=== PATIENT | male | born 1985 | race Caucasian/White ===

== ENCOUNTER 2021-03-22 18:33 | Emergency (ER) | payer MEDICARE, OTHER ==
[~2021-03-22] VITALS: Ht 170.2 cm; Wt 94.8 kg
[2021-03-22] MEDS ORDERED: RAMELTEON8 MG PO (18:59)
[2021-03-22] MEDS ORDERED: MYCOPHENOLATE500 MG PO (19:00)
[2021-03-22] MEDS ORDERED: CYCLOSPORINE MO25 MG PO (19:00)
[2021-03-22] MEDS ORDERED: ACYCLOVIR200 MG PO (19:01)
[2021-03-22] MEDS ORDERED: PRAVASTATIN SOD20 MG PO (19:01)
[2021-03-22] MEDS ORDERED: PREDNISONE5 MG PO (19:01)
--- NOTE | 2021-03-22 20:12 | EKG ---
[facility] [address] [facility] [place] [address] Signed Sinus tachycardia Possible Left atrial enlargement Low voltage QRS Incomplete right bundle branch block T wave abnormality, consider inferior ischemia Abnormal ECG No previous ECGs available Confirmed by SHAQUILLE TALAMANTES MD ([id number]) on 03/22/2021 8:12:49 PM Electronically Signed By: SHAQUILLE TALAMANTES MD 03/22/212011 PATIENT NAME: JORDAN PALMER Electrocardiogram DATE OF : 85 PHYSICIAN: SHAQUILLE TALAMANTES MD REPORT #: [id number] REPORT IS CONFIDENTIAL AND NOT TO BE RELEASED WITHOUT AUTHORIZATION
[2021-03-22] MEDS ORDERED: CEPHALEXIN500 MG PO (21:21)
[2021-03-22] MEDS ORDERED: HYDROCODON-ACE1 EA10 PO (21:21)
[2021-03-22] MEDS ORDERED: ONDANSETRON ODT8 MG PO (21:21)
== END 2021-03-22 21:47 | disposition home or self-care (01) ==
LOC: ED 18:33
DX: R11.0 Nausea (principal); Z88.6 Allergy status to analgesic agent; Z88.8 Allergy status to other drugs, medicaments and biological substances; Z88.1 Allergy status to other antibiotic agents; Z88.5 Allergy status to narcotic agent; Z79.899 Other long term (current) drug therapy; Z79.52 Long term (current) use of systemic steroids
CPT/HCPCS: 80053; 81001; 83735; 85025; 93005; 93010; 96374; 96375; 99284-25; J0690; J2405; J2550; J7030; J7040